=== PATIENT | male | born 1975 | race Caucasian/White ===

== ENCOUNTER → 2023-06-25 | Emergency (ER) | payer OTHER ==
[~2023-06-25] MED LIST: FOLIC ACID 1 MG, MULTIVITAMINS INJ 10 ML, THIAMINE HCL 100 MG in NA CHLORIDE 0.9% 1,000 ML IV ONE; LORazepam 2 MG/ML VIAL ONE; NA CHLORIDE 0.9% 1,000 ML ONE; ZIPRASIDONE MESYLA 20 MG/VIAL IM ONE
[2023-06-25 10:38] LABS: Absolute Lymphocytes (CBC) 0.9 K/uL (0.7-4.9); Hematocrit 43.7 % (39.6-49.0); Lymphocytes % 13.1 % (15.3-44.8); MCV 98.1 fL (80-100); MPV 9.3 fL (7.6-11.3); Platelets 277 thou/uL (152-406); RBC Red Blood Cell Count 4.45 M/uL (4.33-5.43)
[2023-06-25 10:42] LABS: Protime INR 1.18
[2023-06-25 10:59] LABS: ALT/SGPT 65 U/L (16-61); AST/SGOT 34 U/L (15-37); Albumin 4.2 g/dL (3.4-5.0); Alkaline Phosphatase 69 U/L (45-117); BUN Blood Urea Nitrogen 16 mg/dL (7-18); Bicarbonate 27 mEq/L (21-32); Bilirubin Direct 0.3 mg/dL (0-0.2); Bilirubin Indirect, Calculated 1.1 mg/dL (0.2-0.8); Bilirubin Total 1.4 mg/dL (0.2-1.0); Glomerular Filtration Rate 75 ml/min (=/>90); Glucose Level 132 mg/dL (74-106); Potassium 3.4 mEq/L (3.5-5.1); Protein, Total 8.1 g/dL (6.4-8.2); Sodium Level 135 mEq/L (136-145)
--- NOTE | 2023-06-25 11:54 | ER ---
Nurse's Notes [facility] Name: Donny Avalos Age: 48 yrs Sex: Male : 1975 Arrival Date: 06/25/2023 Time: 09:55 Bed 17 Private MD: Diagnosis: Schizoaffective disorder, bipolar type;Paranoid schizophrenia;Bipolar disorder, current episode manic severe with psychotic features Presentation: 06/25 09:56 Chief complaint: EMS states: toned out to pt home for hallucinations. Voluntary ld1 transport to hospital for SI and HI. Pt reports "I have a bomb at [employer] and I am going to kill Stephen Villanueva." Pt called 911 because he wants to kill himself and wants to go to prison. 10:10 Coronavirus screen: At this time, the client does not indicate any symptoms associated ld1 with coronavirus-19. Ebola Screen: No symptoms or risks identified at this time. Initial Sepsis Screen: Does the patient meet any 2 criteria? No. Patient's initial sepsis screen is negative. Does the patient have a suspected source of infection? No. Patient's initial sepsis screen is negative. Risk Assessment: Do you want to hurt yourself or someone else? Patient reports no desire to harm self or others. 10:10 Method Of Arrival: EMS: [facility] ld1 10:10 Acuity: JOSH 2 ld1 10:10 Onset of symptoms was June 25, 2023 at 10:10. ld1 Triage Assessment: 10:00 General: Appears uncomfortable. General: Behavior is anxious, combative, inappropriate ld1 for age. Pain: Denies pain. 10:00 EENT: No signs and/or symptoms were reported regarding the EENT system. Neuro: Level of ld1 Consciousness is awake, alert, obeys commands, Oriented to person, place, time, situation. 14:38 General: Appears. ld1 Historical: - Allergies: 10:09 PENICILLINS; ld1 - PMHx: 10:18 Depressive disorder; Bipolar disorder; Schizophrenia; ld1 - Immunization history:: Adult Immunizations up to date. - Social history:: Smoking status: Patient denies any tobacco usage or history of. Patient/guardian denies using alcohol. Screenin:18 [facility] ED Fall Risk Assessment (Adult) History of falling in the last 3 months, ld1 including since admission No falls in past 3 months (0 pts). Abuse screen:. Nutritional screening: No deficits noted. Tuberculosis screening: No symptoms or risk factors identified. Assessment: 09:57 Reassessment: Pt states "I am here because I wanted to get arrested for Domestic ld1 Violence because I did something to the [place]. I am suicidal and I want to blow my brains out." Pt reports being suicidal and wanting to hurt others. 10:00 Reassessment: Pt uncooperative at this time. States "I am going to blow your fucking ld1 brains out if you touch me." PD called at this time. 10:01 Reassessment: Pt states "I will shoot you in your fucking forehead if you come near ld1 me." Pt reached into back pocket attempting to pull something out. Nothing in back pockets of patient. Pt screaming at nurse. Staff came to room to assist getting patient into bed. Awaiting police arrival. 10:18 Reassessment: Pt placed in paper scrubs, PD at bedside. See MAR for medication orders. ld1 SI precautions in place. SI paper work completed. 14:37 Reassessment: Pt awake with EMS at bedside to transport to [facility]. Pt agrees to ld1 go to [employer]. Denies pain at this time. States "I feel better now.". Psych: 10:00 [place] Suicide Severity Screening: In the past month, have you wished you were ld1 or wished you could go to sleep and not wake up? Patient responds "yes." "In the past month, have you actually had any thoughts of killing yourself?" Patient responds "yes." "In your lifetime, have you ever done anything, started to do anything, or prepared to do anything to end your life?" Patient responds "yes.". Subjective: Patient's mood is angry. Interventions: Removed personal items and placed in bag. Searched person for dangerous items. Urine collected and sent for urine drug test. Belonging list filled out. 10:00 Objective: Patient is uncooperative, aggressive. Safety Checks: Personal items have ld1 been removed. Door is open. Pt denies substance abuse. Commitment: Patient will be a voluntary commitment. Vital Signs: 10:09 Pulse 117; Resp 18; Temp 98.2(TE); Pulse Ox 100% on R/A; Weight 74.84 kg; Height 5 ft. ld1 7 in. ; Pain 0/10; 10:10 BP 159 / 86; ld1 10:09 Body Mass Index 25.84 (74.84 kg, 170.18 cm) ld1 10:09 Pain Scale: Adult ld1 ED Course: 09:56 Patient arrived in ED. ld1 09:57 Rubens Patel MD is Attending Physician. dorian 10:09 Arm band placed on right wrist. ld1 10:10 Triage completed. ld1 10:18 Patient has correct armband on for positive identification. Bed in low position. Side ld1 rails up X2. Security at bedside. placed in paper scrubs, room removed of all items. SI precautions in place. Patient is placed in psych hold. 10:18 No provider procedures requiring assistance completed. Inserted saline lock: 20 gauge ld1 in right antecubital area, using aseptic technique. Blood collected. 10:20 Marisa Sampson, RN is Primary Nurse. ld1 11:35 faxed chart to [facility]. bd 11:55 COVID-19 SARS RT PCR Sent. ld1 14:40 IV discontinued, intact, bleeding controlled, No redness/swelling at site. ld1 Administered Medications: 10:03 CANCELLED (Duplicate Order): [id number] mg IM once dorian 10:13 Drug: Ativan IVP 2 mg IVP once Route: IVP; Site: right antecubital; ld1 10:13 Drug: Geodon IM 40 mg IM once Route: IM; Site: right deltoid; ld1 10:27 Drug: NS 0.9% IV 1000 ml IV at 1 bolus Per protocol; 1000 mL bolus Route: IV; Rate: 1 ld1 bolus; Site: right antecubital; 12:48 Drug: Banana Bag - (Multivitamin IV 1 amp, NS 0.9% IV 1000 ml, Thiamine IV 100 mg, ld1 foLIC Acid IVPB 1 mg) IV at 150 ml/hr once Route: IV; Rate: 150 ml/hr; Site: right antecubital; 14:37 Not Given (Patient Refused): potassiumeffervescent tablet 25 meq PO once; dissolve in 4 ld1 ounces of water or juice Medication: 14:41 VIS not applicable for this client. ld1 Outcome: 11:53 ER care complete, transfer ordered by MD. dorian 14:39 Transferred by ground EMS ld1 14:39 Condition: good 14:39 Instructed on the need for transfer, 14:41 Patient left the ED. ld1 Signatures: Nallely Gupta Corey, MD MD cha Sims, Lauren, RN RN ld1
--- NOTE | 2023-06-25 11:54 | EDPHYS ---
Physician Documentation [facility] Name: Donny Avalos Age: 48 yrs Sex: Male : 1975 Arrival Date: 06/25/2023 Time: 09:55 Bed 17 Private MD: ED Physician Rubens Patel HPI: 06/25 11:45 This 48 yrs old Male presents to ER via EMS with complaints of Psych Problem. dorian Historical: - Allergies: 10:09 PENICILLINS; ld1 - PMHx: 10:18 Depressive disorder; Bipolar disorder; Schizophrenia; ld1 - Immunization history:: Adult Immunizations up to date. - Social history:: Smoking status: Patient denies any tobacco usage or history of. Patient/guardian denies using alcohol. ROS: 11:47 Constitutional: Negative for fever, chills, and weight loss, Eyes: Negative for injury, dorian pain, redness, and discharge, ENT: Negative for injury, pain, and discharge, Neck: Negative for injury, pain, and swelling, Cardiovascular: Negative for chest pain, palpitations, and edema, Respiratory: Negative for shortness of breath, cough, wheezing, and pleuritic chest pain, Abdomen/GI: Negative for abdominal pain, nausea, vomiting, diarrhea, and constipation, Back: Negative for injury and pain, : Negative for injury, bleeding, discharge, and swelling, MS/Extremity: Negative for injury and deformity, Skin: Negative for injury, rash, and discoloration, Neuro: Negative for headache, weakness, numbness, tingling, and seizure, Allergy/Immunology: Negative for hives, rash, and allergies, Endocrine: Negative for neck swelling, polydipsia, polyuria, polyphagia, and marked weight changes, Hematologic/Lymphatic: Negative for swollen nodes, abnormal bleeding, and unusual bruising, 11:47 Psych: Positive for anxiety, depression, auditory hallucinations, suicidal ideation, Exam: 11:47 Constitutional: This is a well developed, well nourished patient who is awake, alert, dorian and in no acute distress. Head/Face: Normocephalic, atraumatic. Eyes: Pupils equal round and reactive to light, extra-ocular motions intact. Lids and lashes normal. Conjunctiva and sclera are non-icteric and not injected. Cornea within normal limits. Periorbital areas with no swelling, redness, or edema. ENT: Nares patent. No nasal discharge, no septal abnormalities noted. Tympanic membranes are normal and external auditory canals are clear. Oropharynx with no redness, swelling, or masses, exudates, or evidence of obstruction, uvula midline. Mucous membranes moist. Neck: Trachea midline, no thyromegaly or masses palpated, and no cervical lymphadenopathy. Supple, full range of motion without nuchal rigidity, or vertebral point tenderness. No Meningismus. Chest/axilla: Normal chest wall appearance and motion. Nontender with no deformity. No lesions are appreciated. Respiratory: Lungs have equal breath sounds bilaterally, clear to auscultation and percussion. No rales, rhonchi or wheezes noted. No increased work of breathing, no retractions or nasal flaring. Abdomen/GI: Soft, non-tender, with normal bowel sounds. No distension or tympany. No guarding or rebound. No evidence of tenderness throughout. Back: No spinal tenderness. No costovertebral tenderness. Full range of motion. Male : Normal genitalia with no discharge or lesions. Skin: Warm, dry with normal turgor. Normal color with no rashes, no lesions, and no evidence of cellulitis. MS/ Extremity: Pulses equal, no cyanosis. Neurovascular intact. Full, normal range of motion. Neuro: Awake and alert, GCS 15, oriented to person, place, time, and situation. Cranial nerves II-XII grossly intact. Motor strength 5/5 in all extremities. Sensory grossly intact. Cerebellar exam normal. Normal gait. 11:47 Cardiovascular: Rate: tachycardic, actual rate is 117 bpm, Rhythm: regular, Pulses: Pulses are 4+ in bilateral radial, brachial, femoral, popliteal, posterior tibial and and dorsalis pedis arteries.. Heart sounds: normal, normal S1and S2, no S3 or S4, no murmur, no rub, no gallop, Edema: is not appreciated, JVD: is not appreciated, 12:07 ECG was reviewed by the Attending Physician. [facility] Vital Signs: 10:09 Pulse 117; Resp 18; Temp 98.2(TE); Pulse Ox 100% on R/A; Weight 74.84 kg; Height 5 ft. ld1 7 in. ; Pain 0/10; 10:10 BP 159 / 86; ld1 10:09 Body Mass Index 25.84 (74.84 kg, 170.18 cm) ld1 10:09 Pain Scale: Adult ld1 MDM: 09:57 Patient medically screened. dorian 11:49 Differential diagnosis: drug withdrawal. acute psychotic break, depression, psychosis dorian secondary to non-compliance. Data reviewed: vital signs, nurses notes, EMS record, lab test result(s), EKG, radiologic studies. Consideration of Admission/Observation Escalation of care including admission/observation considered. I considered the following discharge prescriptions or medication management in the emergency department Medications were administered in the Emergency Department. See MAR. Independent interpretation of the following test(s) in the Emergency Department EKG: See my EKG interpretation above. Test considered but Not performed: CT: NO CT BRAIN. Historians other than the Patient: EMS: EMS WELL INFORMED. Care significantly affected by the following chronic conditions: BIPOLAR, DEPRESSION , SCHIZOTYPICAL. Counseling: I had a detailed discussion with the patient and/or guardian regarding the historical points, exam findings, and any diagnostic results supporting the discharge/admit diagnosis, lab results, the need to transfer to another facility, for higher level of care, [facility] does not immediately have the required specialist. 06/25 09:58 Order name: Acetaminophen; Complete Time: 11:26 [facility] 06/25 09:58 Order name: Basic Metabolic Panel; Complete Time: 11:26 [facility] 06/25 09:58 Order name: CBC with Diff; Complete Time: 11:26 [facility] 06/25 09:58 Order name: ETOH Level; Complete Time: 11:26 [facility] 06/25 09:58 Order name: Hepatic Function; Complete Time: 11:26 [facility] 06/25 09:58 Order name: PT-INR; Complete Time: 11:26 [facility] 06/25 09:58 Order name: Ptt, Activated; Complete Time: 11:26 [facility] 06/25 09:58 Order name: Salicylate; Complete Time: 11:26 [facility] 06/25 09:58 Order name: Urinalysis w/ reflexes [facility] 06/25 09:58 Order name: Urine Drug Screen [facility] 06/25 11:55 Order name: SARS RAPID ld1 06/25 09:58 Order name: EKG; Complete Time: 09:59 [facility] 06/25 09:58 Order name: EKG - Nurse/Tech; Complete Time: 10:21 [facility] 06/25 09:58 Order name: IV Saline Lock; Complete Time: 10:21 [facility] 06/25 09:58 Order name: Labs collected and sent; Complete Time: : [facility] 06/25 09:58 Order name: Suicide Screening ([place]); Complete Time: 10: [facility] EC:07 Rate is 95 beats/min. Rhythm is regular. QRS [place] is Normal. [place] interval is normal. QRS dorian interval is normal. QT interval is normal. No Q waves. T waves are Normal. No ST changes noted. Clinical impression: NSR w/ Non-specific ST/T Changes and No evidence of ischemia. Interpreted by me. Reviewed by me. Administered Medications: 10:03 CANCELLED (Duplicate Order): [id number] mg IM once dorian 10:13 Drug: Ativan IVP 2 mg IVP once Route: IVP; Site: right antecubital; ld1 10:13 Drug: Geodon IM 40 mg IM once Route: IM; Site: right deltoid; ld1 10:27 Drug: NS 0.9% IV 1000 ml IV at 1 bolus Per protocol; 1000 mL bolus Route: IV; Rate: 1 ld1 bolus; Site: right antecubital; 12:48 Drug: Banana Bag - (Multivitamin IV 1 amp, NS 0.9% IV 1000 ml, Thiamine IV 100 mg, ld1 foLIC Acid IVPB 1 mg) IV at 150 ml/hr once Route: IV; Rate: 150 ml/hr; Site: right antecubital; 14:37 Not Given (Patient Refused): potassiumeffervescent tablet 25 meq PO once; dissolve in 4 ld1 ounces of water or juice Disposition Summary: 06/25/23 11:53 Transfer Ordered Notes: Transfer Location: Psych Facility dorian Reason: Higher level of care dorian Condition: Stable dorian Problem: an acute exacerbation dorian Symptoms: have improved dorian Accepting Physician: TO PSYCH(06/25/23 14:41) ld1 Diagnosis - Schizoaffective disorder, bipolar type dorian - Paranoid schizophrenia dorian - Bipolar disorder, current episode manic severe with psychotic features dorian Forms: - Medication Reconciliation Form dorian - SBAR form dorian Signatures: Dispatcher [employer] Rubens Loera MD MD cha Sims, Lauren, RN RN ld1 Corrections: (The following items were deleted from the chart) 10: 09:58 Geodon IM 20 mg IM once ordered. dorian dorian 14:41 11:53 TO PSYCH dorian ld1
[2023-06-25 12:37] LABS: Specific Gravity 1.013 (1.005-1.030); Urine Bacteria None Seen /HPF (<20); Urine Bilirubin NEGATIVE (Negative); Urine Blood Trace (Negative); Urine Clarity Clear (Clear); Urine Color Light-Yellow (Yellow); Urine Glucose NEGATIVE (Negative); Urine Mucus Slight /HPF (None Seen); Urine Protein NEGATIVE (Negative); Urine RBC <5 /HPF (None Seen); Urine Urobilinogen Normal (Normal)
[2023-06-25 12:46] LABS: Barbiturates NEGATIVE (NEGATIVE); Benzodiazepines NEGATIVE (NEGATIVE); Cocaine NEGATIVE (NEGATIVE); METHAMPHETAM NEGATIVE (NEGATIVE); Methadone NEGATIVE (NEGATIVE); Opiates NEGATIVE (NEGATIVE); Phencyclidine NEGATIVE (NEGATIVE); THC Cannibis POSITIVE (NEGATIVE)
[2023-06-25 12:48] LABS: SARS-CoV-2 Antigen Rapid Res Negative (Negative)
[2023-06-25 16:55] VITALS: BP 159/86; TEMP 98.2; O2SAT 100
--- NOTE | 2023-06-26 12:53 | EKG ---
Test Date: 2023-06-25 Test Time: 10:23:43 Clinical Unit Coordinator: GURWINDER MEASUREMENT RESULTS: Intervals: Rate: 95 MD: 120 QRSD: 86 QT: 358 QTc: 449 [place]: P: 79 MD: 120 QRS: 71 T: 73 INTERPRETIVE STATEMENTS: Normal sinus rhythm Normal ECG Compared to ECG 06/14/1999 15:48:00 No significant changes Electronically Signed On 06-26-23 12:49:58 PROFESSIONAL MODEL by Aaron Cr
== END ==
LOC: ER 09:55
DX: F20.0 Paranoid schizophrenia (principal); Z88.0 Allergy status to penicillin; Z11.52 Encounter for screening for COVID-19
CPT/HCPCS: 85025; 81001; 80048; 36415; 85610; 80076; 85730; 80307; 80143; 80179; 82077; 87811; J3411; J3486; J7030 ×2; 93005; 96372; 96374; 96375; 99285